=== PATIENT | male | born 1995 | race Two or more races ===

== ENCOUNTER 2018-07-20 12:50 | Day surgery (SDC) | payer BC ==
[2018-07-20 13:16] LABS: Bilirubin Negative (Negative); Blood, Urine Negative (Negative); Clarity CLEAR (Clear); Glucose, Urine (Dipstick) Negative (Negative); Leukocyte Negative (Negative); Nitrite Negative (Negative); Protein, Urine (Dipstick) Negative (Neg-Trace); Specific Gravity, Urine 1.023 (1.002-1.036); Urobilinogen 0.2 mg/dL (0.2-1.0)
[2018-07-20 13:33] LABS: #Basophils 0.1 thou/uL (0.0-0.2); #Eosinphils 0.1 thou/uL (0.0-0.7); #Lymphocytes 2.1 thou/uL (1.20-3.40); #Monocytes 0.7 thou/uL (0.11-0.59); #Neutrophils 8.4 thou/uL (1.40-6.50); %Basophils 0.6 % (0.0-1.0); %Eosinophils 0.9 % (0.0-10.0); %Lymphocytes 18.4 % (21.0-51.0); %Neutrophils 74.1 % (42.0-75.0); Hemoglobin 17.2 g/dL (14.0-18.0); Mean Corpuscular HGB CONC 33.8 g/dL (32.0-36.0); Mean Corpuscular Hemoglobin 29.8 pg (27.0-31.0); Mean Corpuscular Volume 88.3 fL (78.0-98.0); Mean Platelet Volume 8.6 fL (7.4-10.4); Platelet Count 232 thou/uL (130-400); RBC Distribution Width 11.6 % (11.5-14.5); Red Blood Cell (RBC) Count 5.76 mill/uL (4.70-6.10); White Blood Cell (WBC) Count 11.3 thou/uL (4.8-10.8)
[2018-07-20] MEDS ORDERED: cefOXitin Sodium/Dextrose,Iso 2 GM in Premix Bag 1 BAG IVPB SCH (14:00)
--- NOTE | 2018-07-20 14:17 | CT ---
CT OF THE ABDOMEN AND PELVIS WITH CONTRAST: 07/20/18 COMPARISON: None. HISTORY: Abdominal pain in the right lower quadrant. TECHNIQUE: Multiple contiguous axial images were obtained in a CT of the abdomen and pelvis with contrast. Coron al reformats were performed. FINDINGS: The appendix is upper limits of normal measuring 8 mm. There may be subtle stranding changes adjacent to the appendix. There are prominent ileocecal lymph nodes. The small bowel and colon are unremarkab le. No free air or free fluid are seen in the abdomen or pelvis. The liver, gallbladder, kidneys, adrenal glands, spleen, and pancreas are unremarkable. No retroperit anthony adenopathy is seen. The visualized inferior thorax, osseous structures, and abdominal wall soft tissues are unremarkable. IMPRESSION: Prominent appendix may be secondary to early acute appendicitis. Correlate with white blood cell cou nt and right lower quadrant abdominal tenderness. POS: [facility]
[2018-07-20 14:21] LABS: ALT (SGPT) 10 U/L (8-55); AST (SGOT) 12 U/L (5-34); Albumin 5.1 g/dL (3.5-5.0); Alkaline Phosphatase 60 U/L (40-150); Anion Gap 12 mmol/L (10-20); BUN (Urea Nitrogen) 13 mg/dL (8.9-20.6); Bilirubin, Total 0.5 mg/dL (0.2-1.2); Calc. Creatinine Clearance 0 mL/min (70-130); Calcium 9.8 mg/dL (7.8-10.44); Carbon Dioxide 28 mmol/L (22-29); Chloride 104 mmol/L (98-107); Estimated GFR-MDRD Greater than 90; Globulin 2.8 g/dL (2.4-3.5); Glucose 93 mg/dL (70-105); Lipase 6 U/L (8-78); Potassium 4.1 mmol/L (3.5-5.1); Protein, Total 7.9 g/dL (6.0-8.3); Sodium 140 mmol/L (136-145)
--- NOTE | 2018-07-20 14:56 | HP ---
HISTORY OF PRESENT ILLNESS: Josemanuel Wilson is a 22-year-old, who was born in [place] [employer]. He experienced the onset of lower periumbilical right lower quadrant pain yesterday. He has suffered nausea and anorexia. Pain is worse with movement. He is seen in the emergency room, evaluated, noted to have a white count in the late 11. CAT scan confirms appendicitis. ALLERGIES: NONE. SOCIAL HISTORY: Tobacco, rarely. Alcohol, occasionally. MEDICATIONS: None routinely. PAST SURGICAL AND MEDICAL HISTORY: Noncontributory. REVIEW OF SYSTEMS: Ten-point, noncontributory. FAMILY HISTORY: Noncontributory. PHYSICAL EXAMINATION: VITAL SIGNS: Blood pressure 137/87, respiratory rate 16, and heart rate 67. HEAD, EARS, EYES, NOSE AND THROAT: Unremarkable. LUNGS: Clear to auscultation. CARDIAC: Regular rate and rhythm without murmur or gallop. ABDOMEN: Soft. Tenderness in right upper quadrant with guarding and rebound. EXTREMITIES: Unremarkable. ASSESSMENT AND PLAN: Acute appendicitis. Recommend laparoscopic video appendectomy. Risks of infection, bleeding, reoperation, open procedure discussed. Questions were answered. Plan outpatient appendectomy today. Job ID: [id number]
[2018-07-20] MEDS ORDERED: Ketorolac Tromethamine 30 MG/ML VIAL ONE (16:50)
[2018-07-20] MEDS ORDERED: Bupivacaine/Epinephrine 0.25% 30 ML VIAL ONE (18:22)
[2018-07-20] MEDS ORDERED: Fentanyl 100 MCG/2 ML VIAL ONE (18:31)
[2018-07-20] MEDS ORDERED: Sodium Chloride 0.9% 10 ML ONE ×2 (18:51→18:53)
[2018-07-20] MEDS ORDERED: Piperacillin/Tazobactam 3.375 GM VIAL ONE (19:02)
--- NOTE | 2018-07-21 11:34 | OP ---
DATE OF PROCEDURE: 07/20/2018 PREOPERATIVE DIAGNOSIS: Acute appendicitis. POSTOPERATIVE DIAGNOSIS: Acute appendicitis. PROCEDURE PERFORMED: Laparoscopic video appendectomy. ANESTHESIA: General, and local 0.5% Marcaine with epinephrine, 30 mL. DESCRIPTION OF PROCEDURE: The patient was taken to the operating room where under general anesthesia, abdomen was prepared with ChloraPrep and draped in routine fashion. Villegas catheter placed at the beginning of the procedure and removed at the end. Local anesthetic was infiltrated in the skin and subcutaneous tissue about each port site. An infraumbilical incision was made and pneumoperitoneum to 15 mmHg obtained with a Veress needle, replaced with a 5 port and laparoscope inserted. Right lateral subcostal incision made and a 5 port placed. Suprapubic incision made and a 12 port placed. Appendix was acutely inflamed. Mesoappendix taken down with the LigaSure. The stump of the appendix divided with Endo-FLORINA blue load stapler. Stapled cecal stump was hemostatic and secured. Appendix removed and submitted to Pathology. Good hemostasis assured. Irrigant and pneumoperitoneum were evacuated. All instruments were removed and all skin incisions were approximated with a subdermal 4-0 Monocryl after suprapubic fascia was approximated with 0 Vicryl on UR needle. The patient tolerated the procedure well. Job ID: [id number]
== END 2018-07-20 20:42 | disposition home or self-care (01) ==
LOC: ERS 12:50 → SDC 16:35 → ERS 16:35 → SDC 16:40
PROVIDERS: ATTEND Specialist
PROC: 0DTJ4ZZ Resection of Appendix, Percutaneous Endoscopic Approach (ICD-10-PCS; principal; 2018-07-20)
DX: K35.80 Unspecified acute appendicitis (principal); F17.290 Nicotine dependence, other tobacco product, uncomplicated
CPT/HCPCS: 74177; 80053; 81003; 83690; 85025; 88304; 96361; 96365; J0131; J0694; J1885; J2543; J3010